=== PATIENT | male | born 1990 | race Caucasian/White ===

== ENCOUNTER 2022-08-13 11:16 | Outpatient (CLI) | payer MEDICAID, SELFPAY ==
[2022-08-13] MEDS: Barium Sulfate 2% W/V-Berry Smoothie 450 ML BTL PO ×2 (11:37→11:38)
--- NOTE | 2022-08-13 14:23 | DI.CT_ITS ---
Exam(s) CT ABDOMEN PELVIS W EXAM: CT ABDOMEN PELVIS W CLINICAL HISTORY: abdominal pain, VENTRAL HERNIA, K43.9. TECHNIQUE: Imaging Protocol: Axial computed tomography images with coronal and sagittal reformatted images were created and reviewed CONTRAST MATERIAL: Intravenous: Omnipaque-350 100cc Oral: Yes. Oral contrast was opacified santiago. COMPARISON: No exams were available for comparison FINDINGS: VISUALIZED LUNG BASES: No nodules nor pleural effusions evident. ABDOMEN: There is no ascites. LIVER: There are no focal hepatic lesions evident. No dilated intrahepatic ducts. GALLBLADDER/BILIARY: No obvious gallbladder pathology. CBD is not dilated. PANCREAS: No evidence of pancreatic mass nor dilatation of the pancreatic duct. SPLEEN: Spleen size is normal. There is a 4 millimeter hypodensity in the spleen which is probably a cyst or hemangioma. Splenic and portal veins are patent. ADRENALS: There are no significant adrenal masses. KIDNEYS:No cysts evident. No solid renal masses. No calculi nor hydronephrosis.. ABDOMINAL AORTA: Abdominal aorta is not enlarged. LYMPH NODES:There is no retroperitoneal nor paraaortic adenopathy. ABDOMINAL WALL: Fat containing umbilical hernia noted. GI: There is no evidence of bowel obstruction, free air, nor abscess. PELVIS: GI: There is an appendicular lith in the appendix lumen just anterior to the right psoas muscle. Thi s measures 7 by 4 millimeters. There is, however, no evidence of obvious acute appendicitis at this time.No evidence of sigmoid diverticulitis. LYMPH NODES: There is no intrapelvic nor inguinal adenopathy. REPRODUCTIVE: Prostate size normal. Seminal vesicles unremarkable. URINARY BLADDER: No calculi nor obvious masses evident OSSEOUS: No fractures and no significant osseous lesions. IMPRESSION: 1. There is a 7 x 4 millimeter calcified appendicolith in the appendix lumen noted. However, there i s no evidence of acute appendicitis at this time. 2. There is an anterior abdominal wall fat only containing umbilical hernia. Does not contain bowel loops. There is no evidence of obvious bowel obstruction, free air, nor abscess. 3. There is no ascites. RADIATION DOSE DELIVERED: 762.31mGy.cm Total DLP DATA REPOSITORY: All CT scans at this facility are submitted to the National Radiology Data Registry (NRDR) Dose Index Registry (DIR) with the [employer] (ACR). RADIATION OPTIMIZATION: All CT scans at this facility use at least one of these dose optimization te chniques: automated exposure control; mA and/or kV adjustment per patient size (includes targeted exa ms where dose is matched to clinical indication); or iterative reconstruction.
[2022-08-13] MEDS: Omnipaque 350 MG/ML 500 ML BTL-Imaging package 100 ML IJ (14:38)
== END 2022-08-13 11:36 ==
LOC: DI 11:17
PROVIDERS: Visit Provider Physician Assistant
DX: K43.9 Ventral hernia without obstruction or gangrene (principal); K38.8 Other specified diseases of appendix
CPT/HCPCS: 74177

== ENCOUNTER 2023-12-03 11:56 | Observation (INO) | payer MEDICAID, SELFPAY ==
[2023-12-03] VITALS (26 sets, daily range): BP systolic 104–169; BP diastolic 62–108; PULSE 66–99; RESP 13–20; TEMP 36.2–37.1; O2SAT 95–100; BMI 20.2
--- NOTE | 2023-12-03 12:45 | DI.CT_ITS ---
Exam(s) CT ABDOMEN PELVIS W EXAM: CT ABDOMEN PELVIS W CLINICAL HISTORY: RLQ pain, hx of appendicolith TECHNIQUE: Imaging Protocol: Axial computed tomography images with coronal and sagittal reformatted images were created and reviewed. CONTRAST MATERIAL: Intravenous: Omnipaque 350 Contrast volume:100 mL Oral: No COMPARISON: CT CT ABDOMEN PELVIS W from 08/13/2022 FINDINGS: ABDOMEN: Lung Bases: Normal where visualized. Liver: Normal density. There is a tiny hypodensity in the posterior segment of the right lobe of the liver. This is too small for further characterization but likely reflects a small cyst. No suspicio us hepatic masses are seen. The liver measures 21.1 cm long. Portal, Superior Mesenteric, and Splenic Veins: Unremarkable. Gallbladder and Biliary Tract: No radiodense calculus or dilation. Pancreas: Normal density, no abnormal calcifications or inflammatory process. Spleen: There is a small stable cyst or hemangioma in the spleen. Adrenals: No masses seen. Kidneys: Normal size, contour and axis. There is a 2 mm nonobstructing stone in the lower pole of the left kidney. No masses seen. Abdominal Aorta: Abdominal portion non-dilated. Bowel: No obstruction or bowel wall thickening. The appendix measures 1 cm in diameter with an enhanc ing wall. There is an appendicolith present. There are inflammatory changes around the appendix. T he findings are consistent with acute appendicitis. Peritoneal Cavity: There is a trace amount of free fluid in the right lower quadrant. No free air. Lymph Nodes: Within normal limits. Bones: Within normal limits for the patient's age. Soft Tissues: Unremarkable. PELVIS: Bladder: The urinary bladder is incompletely distended limiting evaluation. Reproductive Organs: Unremarkable as visualized. Lymph Nodes: Within normal limits. Bones: Within normal limits for the patient's age. IMPRESSION: Findings of acute appendicitis with appendicoliths. No abscess or free air. RADIATION DOSE DELIVERED: 605.41mGy.cm Total DLP DATA REPOSITORY: All CT scans at this facility are submitted to the National Radiology Data Registry (NRDR) Dose Index Registry (DIR) with the [employer] (ACR). RADIATION OPTIMIZATION: All CT scans at this facility use at least one of these dose optimization te chniques: automated exposure control; mA and/or kV adjustment per patient size (includes targeted exa ms where dose is matched to clinical indication); or iterative reconstruction.
[2023-12-03 13:05] LABS: Abs Immature Grans 0.02 10^3/uL (0.0-0.06); Absolute Basophil Count 0.05 10^3/uL (0.0-0.2); Absolute Eosinophil Count 0.07 10^3/uL (0.0-0.7); Absolute Lymphocyte Count 2.86 10^3/uL (1.2-3.4); Absolute Monocyte Count 0.65 10^3/uL (0.1-0.8); Absolute Neutrophil Count 4.64 10^3/uL (1.2-6.7); Basophils % 0.6 %; Eosinophils % 0.8 %; HCT 48.5 % (40.0-50.0); HGB 16.8 g/dL (13.5-17.5); Immature Grans % 0.2 %; Lymphocytes % 34.5 %; MCH 31.2 pg (27.0-33.0); MCHC 34.6 % (32.0-36.0); MCV 90 fL (80-95); MPV 9.8 fL (8.0-11.0); Monocytes % 7.8 %; Neutrophils % 56.1 %; Platelet Count 322 10^3/uL (130-400); RBC 5.39 10^6/uL (4.36-5.78); RDW 11.8 % (11.8-14.1); RDW-SD 38.7 fL; WBC 8.29 10^3/uL (4.4-10.8)
[2023-12-03] MEDS: Normal Saline 1,000 ML 1000 ML IV (13:17)
[2023-12-03 13:31] LABS: ALT 26 U/L (16-63); AST 13 U/L (15-37); Albumin 4.6 g/dL (3.4-5.0); Alkaline Phosphatase 99 U/L (46-116); Anion Gap 13.2 mmol/L (3-11); BUN 13 mg/dL (7-18); CO2 25.8 mmol/L (21.0-32.0); CREATININE 1.1 mg/dL (0.70-1.30); Calcium 9.3 mg/dL (8.5-10.1); Chloride 100 mmol/L (98-107); Estimated GFR 89.78 (mL/min/1.73m2); Glucose 104 mg/dL (74-106); Lipase 23 U/L (16-77); Potassium 3.9 mmol/L (3.5-5.1); Sodium 139 mmol/L (136-145); TSH (W/Ref FT4) 1.09 uIU/mL (0.36-3.74); Total Protein 8.6 g/dL (6.4-8.2)
[2023-12-03] MEDS: Omnipaque 350 MG/ML 100 ML BTL IJ (13:55)
[2023-12-03] MEDS: Normal Saline - Diluent 50 ML VIAL IJ (13:58)
[2023-12-03] MEDS: Normal Saline Flush 10 ML SYR IVP ×2 (13:59→19:43)
--- NOTE | 2023-12-03 14:16 | W.ED.GENAD ---
Discharge Plan Disposition Condition: Good Discharge Details Chief Complaint: Abd Prob Admit Date/Time: 12/03/23 16:39 Admit Provider: Olamide Rubalcava Attending Provider: Olamide Rubalcava Primary Care Provider: Unknown,Unknown ED Provider: Audrey Walls Discharge Instructions Activity:: Activity as Tolerated Equipment/Supplies:: No Equipment Needed Diet:: Normal Diet Discharge Orders Discharge Orders: Discharge Order (Routine); Ordered 12/04/23 Ordered By: Olamide Rubalcava Discharge Data Discharge Date/Time-TO BE ENTERED AT DEPARTURE: 12/03/23 16:56 HPI General Date/Time Provider Initiated Documentation: 12/03/23 12:29. HPI Narrative: 33-year-old male presents with right lower quadrant pain that started on Friday. States that he has had anorexia denies any vomiting. Denies any chest pain or shortness of breath. Has had difficulties with bowel movements. Denies any fever or chills. States urine has been dark. Related Data Home Medications Medication Instructions Recorded Confirmed lamotrigine 100 mg tablet 100 mg PO BID 08/13/22 12/03/23 tramadol 50 mg tablet 50 mg PO Q4H PRN #14 tabs 12/04/23 Previous Rx's Medication Instructions Recorded tramadol 50 mg tablet 50 mg PO Q4H PRN #14 tabs 12/04/23 Allergies Allergy/AdvReac Type Severity Reaction Status Date / Time bee venom protein (honey bee) Allergy Intermediate Other (See Verified 12/03/23 12:06 Comment) General Stated Complaint: Abd Prob GEM: 3 Exam Narrative Exam Narrative: Alert and oriented male, no scleral icterus or jaundice, lungs clear to auscultation, cardiac rate rhythm regular, McBurney's point tenderness on exam without rebound tenderness, distal pulses intact Course Vital Signs Vital signs: Vital Signs Temperature 37.1 C 12/03/23 12:00 Pulse 99 H 12/03/23 12:00 Respiratory Rate 14 12/03/23 12:00 Blood Pressure 146/98 H 12/03/23 12:00 Pulse Oximetry 97 12/03/23 12:00 Temperature 37.1 C 12/03/23 12:00 Temperature Source Skin 12/03/23 12:00 Pulse 79 12/03/23 13:15 Respiratory Rate 14 12/03/23 12:00 Blood Pressure 115/77 12/03/23 13:15 Blood Pressure Mean 89 12/03/23 13:15 Pulse Oximetry 97 12/03/23 12:00 Oxygen Delivery Method Room Air 12/03/23 12:00 Oxygen Flow Rate 0 12/03/23 12:00 Pain Level 7 12/03/23 12:00 Lab/Test Results Lab/Test Results: Laboratory Tests Range/Units 12/03/23 12:18 WBC (4.4-10.8) 10^3/uL 8.29 RBC (4.36-5.78) 10^6/uL 5.39 Hgb (13.5-17.5) g/dL 16.8 Hct (40.0-50.0) % 48.5 MCV (80-95) fL 90 MCH (27.0-33.0) pg 31.2 MCHC (32.0-36.0) % 34.6 RDW (11.8-14.1) % 11.8 Plt Count (130-400) 10^3/uL 322 MPV (8.0-11.0) fL 9.8 Immature Gran % % 0.2 Neutrophils % % 56.1 Lymphocytes % % 34.5 Monocytes % % 7.8 Eosinophils % % 0.8 Basophils % % 0.6 Nucleated RBC % (0.0-0.3) % 0.0 Absolute Neutrophils (1.2-6.7) 10^3/uL 4.64 Absolute Lymphocytes (1.2-3.4) 10^3/uL 2.86 Absolute Monocytes (0.1-0.8) 10^3/uL 0.65 Absolute Eosinophils (0.0-0.7) 10^3/uL 0.07 Absolute Basophils (0.0-0.2) 10^3/uL 0.05 Sodium (136-145) mmol/L 139 Potassium (3.5-5.1) mmol/L 3.9 Chloride (98-107) mmol/L 100 Carbon Dioxide (21.0-32.0) mmol/L 25.8 Anion Gap (3-11) mmol/L 13.2 H BUN (7-18) mg/dL 13 Creatinine (0.70-1.30) mg/dL 1.1 Est GFR (CKD-EPI 2020) (mL/min/1.73m2) 89.78 Glucose (74-106) mg/dL 104 Calcium (8.5-10.1) mg/dL 9.3 Total Bilirubin (0.2-1.0) mg/dL 1.0 AST (15-37) U/L 13 L ALT (16-63) U/L 26 Alkaline Phosphatase (46-116) U/L 99 Total Protein (6.4-8.2) g/dL 8.6 H Albumin (3.4-5.0) g/dL 4.6 Lipase (16-77) U/L 23 TSH (0.36-3.74) uIU/mL 1.09 Medical Decision Making 33-year-old male presenting with reports of right lower quadrant pain for the past few days. CT was ordered for further evaluation and displays acute appendicitis per Dr. Acosta interpretation and review. Labs reviewed without significant acute abnormality. Zosyn initiated patient remains n.p.o., Dr. Rubalcava, surgeon will take patient to operating room. Otherwise healthy alert, oriented, no leukocytosis Patient without signs of systemic illness, is alert, oriented, cooperative Quality:SDOH Health Related Social Needs: Health related social needs risk of homeless PFSH All Active Problems (Updated 12/05/23 @ 00:06 by [employer]) Seizure disorder (Chronic) Epigastric hernia (Acute) Cannabis use, uncomplicated (Acute) Smokes tobacco daily (Acute) [place] teeth removed (Acute) Medical History (Updated 12/05/23 @ 00:06 by [employer]) Acute appendicitis Umbilical hernia Surgical History (Updated 12/05/23 @ 00:06 by [employer]) Hx of umbilical hernia repair (~11/2023) incidental during appendectomy S/P laparoscopic appendectomy (~11/2023) Social History Smoking risk assessment performed?: No Housing: house
[2023-12-03 14:54] LABS: Bilirubin Moderate (Negative); Blood Small (Negative); Clarity Clear (Clear); Glucose Negative (Negative); Ketones 80 mg/dL (Negative); Leukocyte Esterase Negative (Negative); Nitrite Negative (Negative); pH 5.5 (5-8)
[2023-12-03] MEDS: PIPERACILLIN/TAZO 3.375 GM in Normal Saline 50 ML IVPB ×2 (14:55→19:47)
[2023-12-03 15:16] LABS: Bacteria Negative HPF (Negative); C & S Indicated? No; Casts Negative LPF (Negative); Crystals Negative HPF (Negative); Epithelial Cells Rare HPF (Negative); Mucus Trace (Negative); WBC Negative HPF (0-5)
--- NOTE | 2023-12-03 15:37 | ANES.PREOP_ITS ---
General Info Date of Service Date Performed: 12/03/23 Height: 5 ft 11 in Weight: 65.771 kg Body Mass Index (BMI): 20.2 Surgical Procedure: Operation Date: 12/03/23 16:10 Proposed Procedure Side Surgeon p Appendectomy Laparoscopic Olamide Rubalcava, DO Meds Allergies and Home Medications Allergies Allergy/AdvReac Type Severity Reaction Status Date / Time bee venom protein (honey bee) Allergy Intermediate Other (See Verified 12/03/23 12:06 Comment) Home Medication Medication Instructions Recorded lamotrigine 100 mg tablet 200 mg PO DAILY 08/13/22 Current Visit Medications: Current Medications Generic Name Dose Route Start Last Admin Trade Name Freq PRN Reason Stop Dose Admin Iohexol 100 ml 12/03/23 14:00 12/03/23 13:55 Omnipaque 350 Mg/Ml 100 Ml Btl IJ 01/02/24 23:59 100 ml DIRECTED NIEVES Administration Sodium Chloride 50 ml 12/03/23 14:00 12/03/23 13:58 Normal Saline - Diluent 50 Ml Vial IJ 50 ml .FOR DI USE NIEVES Administration Sodium Chloride 0 ml 12/03/23 13:59 12/03/23 13:59 Normal Saline Flush 10 Ml Syr IVP 10 ml PRN PRN Administration Vital Signs and Lab Results Vital Signs Most Recent Vital Signs in EMR: Most Recent Vital Signs Temp Pulse Resp BP Pulse Ox 37.1 C 66 14 111/66 97 12/03/23 12:00 12/03/23 13:46 12/03/23 12:00 12/03/23 13:46 12/03/23 12:00 Lab Results 12/03/23 12:18 12/03/23 12:18 Blood Type / Crossmatch: 2 No Data to Display Complete Blood Count: 2 White Blood Count 8.29 10^3/uL (4.4-10.8) 12/03/23 12:18 Red Blood Count 5.39 10^6/uL (4.36-5.78) 12/03/23 12:18 Hemoglobin 16.8 g/dL (13.5-17.5) 12/03/23 12:18 Hematocrit 48.5 % (40.0-50.0) 12/03/23 12:18 Platelet Count 322 10^3/uL (130-400) 12/03/23 12:18 Complete Metabolic Panel: 2 Sodium 139 mmol/L (136-145) 12/03/23 12:18 Potassium 3.9 mmol/L (3.5-5.1) 12/03/23 12:18 Chloride 100 mmol/L (98-107) 12/03/23 12:18 Carbon Dioxide 25.8 mmol/L (21.0-32.0) 12/03/23 12:18 BUN 13 mg/dL (7-18) 12/03/23 12:18 Creatinine 1.1 mg/dL (0.70-1.30) 12/03/23 12:18 Est GFR (CKD-EPI 2020) 89.78 (mL/min/1.73m2) 12/03/23 12:18 Calcium 9.3 mg/dL (8.5-10.1) 12/03/23 12:18 Albumin 4.6 g/dL (3.4-5.0) 12/03/23 12:18 Glucose 104 mg/dL (74-106) 12/03/23 12:18 Liver Function Panel: 2 Alanine Aminotransferase (ALT/SGPT) 26 U/L (16-63) 12/03/23 12: 18 Aspartate Amino Transf (AST/SGOT) 13 U/L (15-37) L 12/03/23 12: 18 Coagulation Panel: 2 No Data to Display Cardiac Panel: 2 No Data to Display Arterial Blood Gas: 2 No Data to Display Venous Blood Gas: 2 No Data to Display Pancreas Panel: 2 Lipase 23 U/L (16-77) 12/03/23 12:18 Thyroid Panel: 2 Thyroid Stimulating Hormone (TSH) 1.09 uIU/mL (0.36-3.74) 12/02 12:18 Infectious Disease: 2 No Data to Display Blood Cultures: 2 No Data to Display Toxicology Panel: 2 No Data to Display Anesthesia Assessment and Plan Anesthesia History Personal History: No History of General Anesthesia Family History: No Family History of Anesthesia Complications (adopted, unsure of history) Exercise Tolerance Exercise Tolerance: Metabolic Equivalents>4 Pertinent Negatives Pertinent Negatives: No Symptoms of GERD Cardiac & Pulmonary Exam Cardiac Exam: Normal S1/S2 Heart Sounds Pulmonary Exam: Clear Bilateral Breath Sounds Implantable Cardiac Device Does patient have a Pacemaker or an ICD?: No Airway Exam Known Difficult Airway: No Mallampati Class: 1 Mouth Opening: Normal (> 3cm) Thyromental Distance: Greater than 3 cm Neck Range of Motion: Full ROM Neck Circumference: Normal Teeth Condition: Normal Dentition ASA Classification ASA Score: ASA 2 Emergency Case?: Yes NPO Status NPO Status: NPO Clears >2 hours, Solids >8 hours Anesthesia Plan Resuscitation Status: Full Code Anesthesia Technique: General Anesthesia Airway Planned: Endotracheal Tube Monitors Used: Standard Monitors
--- NOTE | 2023-12-03 17:42 | NUR.NOTE ---
Nursing Note: admitted from ER, ambulatory, states pain is 3/10 mid abd and RLQ. NPO for pending operation
--- NOTE | 2023-12-03 18:11 | HPE_ITS ---
Date of service: 12/03/23 Time of Service: 18:12 Assessment and Plan Assessment and plan (1) Seizure disorder: Status: Chronic Assessment and plan: He takes his p.m. dose between 9 and midnight. Well-controlled on his current medication regimen (2) Acute appendicitis: Status: Acute Assessment and plan: Informed consent is obtained for the procedural (explained in simple layman's terms that the pt and/or family could understand) explaining risks vs benefits and alternatives to the procedure and consequences if we do not do the procedure. Risks include but are not limited to: bleeding, infections, pneumonia, blood clots/DVT/PE, anesthesia (aspiration, damage to teeth/airway/CA/CVA//prolonged mechanical ventilation/PTX/IV infections), damage to bowel, bladder, blood vessels, ureters. Damage to solid organs requiring removal. Leakage from anastomosis requiring colostomy/ Wound infections requiring further surgery. ?Scarring and disfigurement. Subsequent bowel obstructions from scar tissue.? Chronic pain or numbness from the incision, or hernia. Possible open procedure if minimally invasive procedure is being attempted. We will also do incidental repair of umbilical hernia. We cannot place mesh at this time because of the risk of infection. So there is a high chance that the hernia comes back. We discussed the importance of avoiding any heavy lifting or strenuous activity within the next 2 weeks Patient will get a secondary dose of antibiotics, because of unavoidable delay to the OR. I did personally review labs and his CT scan. (3) Epigastric hernia: Status: Acute Assessment and plan: He will need to have this repaired at a later time. (4) Umbilical hernia: Status: Acute (5) Cannabis use, uncomplicated: Status: Acute (6) Smokes tobacco daily: Status: Acute (7) [place] teeth removed: Status: Acute History of Present Illness Narrative: Patient is a 33-year-old male who presents to the emergency department complaining of abdominal pain. He has a known history of an umbilical hernia. He has been having periumbilical pain for the last 2 to 3 days and thought it was his hernia. He has had no fever or chills. He has had no nausea and vomiting. He came to the ER today. A CT was performed which shows acute appendicitis and appendicolith. He has a history of the seizure disorder. His last seizure was 2 years ago. He is well-controlled on lamotrigine. He's smokes tobacco and THC products. The only surgery he has had are his wisdom teeth which she had laughing gas for. He denies any asthma/emphysema. He denies any hypertension or heart disease. He is not diabetic. He is not on any steroids or other immunosuppressants. Review of Systems All systems reviewed & are unremarkable except as noted in HPI and below PFSH All Active Problems (Updated 12/03/23 @ 19:05 by Olamide Rubalcava DO) Seizure disorder (Chronic) Acute appendicitis (Acute) Epigastric hernia (Acute) Umbilical hernia (Acute) Cannabis use, uncomplicated (Acute) Smokes tobacco daily (Acute) [place] teeth removed (Acute) Social History Smoking risk assessment performed?: No Housing: house Meds Allergies and Home Medications Allergies Allergy/AdvReac Type Severity Reaction Status Date / Time bee venom protein (honey bee) Allergy Intermediate Other (See Verified 12/03/23 12:06 Comment) Home Medications Medication Instructions Recorded Confirmed Type lamotrigine 100 mg tablet 100 mg PO BID 08/13/22 12/03/23 History Exam Narrative Exam Narrative: PHYSICAL EXAM HEAD, EYES, EARS, NECK, THROAT: Head is normocephalic, pupils equal, round, reactive to light and accommodation, ocular movement intact, sclera clear and no jaundice. ?Dentition intact. LUNGS: normal respiration/normal chest excursion. ?Clear to auscultation bilaterally. ?No wheeze. ?HEART: Regular rate and rhythm. no murmurs ABDOMEN: Isolated right lower quadrant pain. Normal bowel sounds. No diffuse peritonitis. Umbilical hernia that is soft and reducible. 3 inches above this is an epigastric hernia that is soft and reducible.? Results Labs 12/03/23 12:18 12/03/23 12:18 Labs: Laboratory Results - last 24 hr 12/03/23 12/03/23 12:18 14:45 WBC 8.29 RBC 5.39 Hgb 16.8 Hct 48.5 MCV 90 MCH 31.2 MCHC 34.6 RDW 11.8 Plt Count 322 MPV 9.8 Immature Gran % 0.2 Neutrophils % 56.1 Lymphocytes % 34.5 Monocytes % 7.8 Eosinophils % 0.8 Basophils % 0.6 Nucleated RBC % 0.0 Absolute Neutrophils 4.64 Absolute Lymphocytes 2.86 Absolute Monocytes 0.65 Absolute Eosinophils 0.07 Absolute Basophils 0.05 Sodium 139 Potassium 3.9 Chloride 100 Carbon Dioxide 25.8 Anion Gap 13.2 H BUN 13 Creatinine 1.1 Est GFR (CKD-EPI 2020) 89.78 Glucose 104 Calcium 9.3 Total Bilirubin 1.0 AST 13 L ALT 26 Alkaline Phosphatase 99 Total Protein 8.6 H Albumin 4.6 Lipase 23 TSH 1.09 Urine Color Dark Yellow Urine Clarity Clear Urine pH 5.5 Ur Specific [place] 1.020 Urine Protein 30 H Urine Ketones 80 H Urine Blood Small H Urine Nitrite Negative Urine Bilirubin Moderate H Urine Urobilinogen 2.0 H Ur Leukocyte Esterase Negative Urine RBC 5-10 H Urine WBC Negative Ur Epithelial Cells Rare Urine Crystals Negative Urine Bacteria Negative Urine Casts Negative Urine Mucus Trace Ur Culture Indicated? No Urine Glucose Negative Last Vital Signs Temp 36.7 C 12/03/23 17:30 Pulse 74 12/03/23 17:30 Resp 17 12/03/23 17:30 BP 130/87 12/03/23 17:30 Pulse Ox 100 12/03/23 17:30 Anemia profile 2 Hgb 16.8 g/dL (13.5-17.5) 12/03/23 Hct 48.5 % (40.0-50.0) 12/03/23 MCV 90 fL (80-95) 12/03/23 RDW 11.8 % (11.8-14.1) 12/03/23 Basic Metabolic 2 Sodium 139 mmol/L (136-145) 12/03/23 Potassium 3.9 mmol/L (3.5-5.1) 12/03/23 Chloride 100 mmol/L (98-107) 12/03/23 Carbon Dioxide 25.8 mmol/L (21.0-32.0) 12/03/23 BUN 13 mg/dL (7-18) 12/03/23 Creatinine 1.1 mg/dL (0.70-1.30) 12/03/23 Glucose 104 mg/dL (74-106) 12/03/23 CBC 2 White Blood Count 8.29 10^3/uL (4.4-10.8) 12/03/23 Red Blood Count 5.39 10^6/uL (4.36-5.78) 12/03/23 Hemoglobin 16.8 g/dL (13.5-17.5) 12/03/23 Hematocrit 48.5 % (40.0-50.0) 12/03/23 Mean Corpuscular Volume 90 fL (80-95) 12/03/23 Mean Corpuscular Hemoglobin 31.2 pg (27.0-33.0) 12/03/23 Mean Corpuscular Hemoglobin Concent 34.6 % (32.0-36.0) 11/18 12/11 Red Cell Distribution Width 11.8 % (11.8-14.1) 12/03/23 Platelet Count 322 10^3/uL (130-400) 12/03/23 Mean Platelet Volume 9.8 fL (8.0-11.0) 12/03/23 Neutrophils % 56.1 % 12/03/23 Lymphocytes % 34.5 % 12/03/23 Monocytes % 7.8 % 12/03/23 Eosinophils % 0.8 % 12/03/23 Basophils % 0.6 % 12/03/23 Immature Granulocytes % 0.2 % 12/03/23 Comprehensive Metabolic Panel 2 Sodium 139 mmol/L (136-145) 12/03/23 12:18 Potassium 3.9 mmol/L (3.5-5.1) 12/03/23 12:18 Chloride 100 mmol/L (98-107) 12/03/23 12:18 Carbon Dioxide 25.8 mmol/L (21.0-32.0) 12/03/23 12:18 BUN 13 mg/dL (7-18) 12/03/23 12:18 Creatinine 1.1 mg/dL (0.70-1.30) 12/03/23 12:18 Glucose 104 mg/dL (74-106) 12/03/23 12:18 Calcium 9.3 mg/dL (8.5-10.1) 12/03/23 12:18 Total Bilirubin 1.0 mg/dL (0.2-1.0) 12/03/23 12:18 ALT 26 U/L (16-63) 12/03/23 12:18 AST 13 U/L (15-37) L 12/03/23 12:18 Alkaline Phosphatase 99 U/L (46-116) 12/03/23 12:18 Total Protein 8.6 g/dL (6.4-8.2) H 12/03/23 12:18 Albumin 4.6 g/dL (3.4-5.0) 12/03/23 12:18 Diabetes results 2 Glucose 104 mg/dL (74-106) 12/03/23 BUN 13 mg/dL (7-18) 12/03/23 Creatinine 1.1 mg/dL (0.70-1.30) 12/03/23 Est GFR (CKD-EPI 2020) 89.78 (mL/min/1.73m2) 12/03/23 Sodium 139 mmol/L (136-145) 12/03/23 Potassium 3.9 mmol/L (3.5-5.1) 12/03/23 Chloride 100 mmol/L (98-107) 12/03/23 Carbon Dioxide 25.8 mmol/L (21.0-32.0) 12/03/23 Calcium 9.3 mg/dL (8.5-10.1) 12/03/23 AST 13 U/L (15-37) L 12/03/23 ALT 26 U/L (16-63) 12/03/23 Total Protein 8.6 g/dL (6.4-8.2) H 12/03/23 Albumin 4.6 g/dL (3.4-5.0) 12/03/23 TSH 1.09 uIU/mL (0.36-3.74) 12/03/23 Lipid profile 2 No Data to Display Stool tests (SJP) 2 No Data to Display Tick borne Illnesses 2 No Data to Display Time Spent Time spent with Patient: 40-54 minutes Time was spent: preparing to see the patient(eg.review tests), obtaining and/or reviewing separately otained hiistory, ordering medications,tests, procedures, referring, communicating with other health child care supervisor, indepentently interpreting results, counseling the patient and care coordination
[2023-12-03] MEDS: Lactated Ringers 1,000 ML 125 ML IV (18:19)
[2023-12-03] MEDS: ACETAMINOPHEN 1,000 MG/100 ML BTL 400 MG IVPB (18:19)
[2023-12-03] MEDS: Gabapentin 300 MG CAP 600 MG PO (18:20)
[2023-12-03] MEDS: lamoTRIgine 100 MG TAB PO (19:44)
[2023-12-03] MEDS: Lactated Ringers 1,000 ML 30 ML IV (20:20)
[2023-12-03] MEDS: Bupivacaine 0.25% Pres-Free W/EPI 30 ML VIAL ×2 (20:44→21:10)
--- NOTE | 2023-12-03 20:47 | APP_PTH ---
PATIENT: Kvgn Mejía LOC: U#:[id number] AGE/SX: 33/M ROOM: [id number] RE12/03/[address]: Olamide Rubalcava : 1990 BED: A DIS: 12/04/2023 SPEC #: [id number] RECD: 12/04/23 12:16 STATUS: ALBERT REQ #: [id number] CRIS: 12/03/23 20:[address]: Olamide Rubalcava DEPT: Surgical Specimen RECD BY: Audrey Poe ENTERED: 12/04/23 12:17 SP TYPE: Appendix OTHR DR: Unknown,Unknown Tissues: 1 - APPENDIX NOT INCIDENTAL Procedures: IMMUNOPEROXIDASE STAIN GROSS AND MICRO LEVEL 3 Comments: [id number]
--- NOTE | 2023-12-03 21:13 | ROE_ITS ---
Date of service: 12/03/23 Time of Service: 21:13 Operative Note Operative Note DATE OF PROCEDURE: 12/03/23 PRE-OP DIAGNOSIS: Acute appendicitis/umbilical hernia POST-OP DIAGNOSIS: same PROCEDURE: Laparoscopic appendectomy and incidental umbilical hernia repair SURGEON: Jacky Warren WORD PROCESSING SPECIALIST: Alpesh Rasheed ANESTHESIA TYPE: Local By Surgeon and General LMA/ETT Refer to Anesthesia Record ESTIMATED BLOOD LOSS: 5 PATHOLOGY: other COMPLICATIONS: None Patient was transported to: PACU Patient's condition: stable Procedure Description: INDICATIONS: The patient has signs and symptoms compatible with acute appendicitis and is brought to the OR for laparoscopic appendectomy, possible open procedure. Informed consent is obtained for the procedural (explained in simple layman's terms that the pt and/or family could understand) explaining risks vs benefits and alternatives to the procedure and consequences if we do not do the procedure. Risks include but are not limited to:bleeding,infections, pneumonia, blood clots/DVT/PE, anesthesia(aspiration, damage to teeth/airway/MT/CVA//prolonged mechanical ventilation/PTX/IV infections), damage to bowel, bladder,blood vessels, ureters. Damage to solid organs requiring removal. Leakage from anastomosis requiring colostomy. Wound infections requirng further surgery. Scarring and disfigurement. Subsequent bowel obstructions from scar tissue. Possible open procedure if minimaly invsive procedure is being attempted. Abscess and stump appendicitis as well as others. DESCRIPTION OF PROCEDURE: The patient was brought to the operating room suite and placed in supine position. Anesthesia was administered per the Department of Anesthesia. A Mckeon catheter and OG tube are placed. The patient was prepped and draped in the usual sterile fashion using ChloraPrep scrub solution. Pause for the cause was done. 30 mL of 1% buffered was used for local anesthetization. A stab incision was made in the umbilicus and the Veress was inserted. Drop test was positive and insufflation was begun. When 15 mm of pressure was noted on the monitor, the Veress was removed, a #5 port inserted. Camera inserted through the port shows no damage to underlying structures. Bowel, liver and stomach that are visualized are normal in appearance. Pelvic organs are not visualized. The appendix is inflamed, erythematous,enlarged, & distened, but does not appear to have been ruptured. There is no purulent drainage in the pelvis. It is not adhered to any adjacent structures. A 12 mm port was then placed in the suprapubic position under direct visualization following creation of a local field block as well as a second 5 mm port in the LLQ. The appendix is elevated and a rent dissected into the mesentery. The base of the appendix is healthy and will hold favian. A Endo-ADAM stapler is placed across the base of the appendix and fired and 2nd stapler placed across the mesentery and fired. The appendix is placed in a bag and brought out. There is no bleeding or enteric leakage from the staple lines. The pt does not require a drain. The abdomen was copiously irrigated with a liter of saline. All saline is evacuated. The scope and ports are removed. Pneumoperitoneum is evacuated. The fascia under the 12 mm port is closed with 0 Vicryl. The incision under the umbilicus is enlarged. The hernia defect is closed with 0 Vicryl in an interrupted fashion. The umbilicus is tacked down to the fascia. There was no bleeding from the port sites as when they removed and the pneumoperitoneum evacuated. The wounds were copiously irrigated and closed in 2 layers with 4-0 Monocryl.? Skin glue is used.? Sterile dressings are applied. The patient tolerated the procedure without complication, transferred to the recovery room in stable condition. JACKY WARREN, DO ?
--- NOTE | 2023-12-03 21:47 | W.ANESPOSTOP ---
Postoperative Evaluation Date, Time and Location Date Performed: 12/03/23 Time Performed: 21:47 Patient Location: PACU Vital Signs Most Recent Imported Vital Signs: Most Recent Vital Signs Temp Pulse Resp BP Pulse Ox 36.7 C 84 20 133/100 H 96 12/03/23 21:40 12/03/23 21:40 12/03/23 21:40 12/03/23 21:40 12/03/23 21:40 Pain Score Most Recent Pain Score: Most Recent Pain Score Pain Level [Mid Abdomen] 3 12/03/23 17:32 Pain Level 0 12/03/23 21:40 Assessment Mental Status: Awake (Alert & Oriented to Patient Baseline) Airway and Respiratory Function: Patent airway with normal (patient baseline) respiratory exam Cardiovascular Function: Hemodynamically Stable Hydration Status: Adequately Hydrated Nausea & Vomiting: No Nausea or Vomiting Pain: Pain is tolerable per patient Peripheral Nerve Block: Patient did not receive a nerve block
[2023-12-04] MEDS: Normal Saline Flush 10 ML SYR IVP ×3 (00:19→12:54)
[2023-12-04] MEDS: Ketorolac 15 MG/ML VIAL IVP ×3 (00:20→12:54)
[2023-12-04] MEDS: Acetaminophen 500 MG TAB 1000 MG PO ×2 (00:21→06:18)
[2023-12-04 00:43] VITALS: PULSE 56; RESP 16; O2SAT 95
[2023-12-04 06:51] VITALS: RESP 16
[2023-12-04 07:22] VITALS: BP 115/73; PULSE 59; RESP 20; TEMP 36.9; O2SAT 97
--- NOTE | 2023-12-04 07:27 | PGE_ITS ---
Date of Service Date of service: 12/04/23 Time of Service: 07:27 Assessment and Plan Assessment and plan (1) Acute appendicitis: Status: Acute Assessment and plan: POD # 1 s/p laparoscopic Appendectomy Awaiting breakfast Pain well controlled Urinating without difficulty Incisions are well approximated, skin a fix in place P// D/C home after breakfast Subjective Subjective Interval history since last seen: Arrived with the patient resting comfortably in bed. He reports that he is having some soreness postoperatively but otherwise is feeling well. He is excited to have breakfast. He denies any fevers, chills or night sweats. He denies having any nausea or vomiting. He is urinating without difficulty. Exam Const General: cooperative, healthy appearing and comfortable Orientation: alert and oriented x3 Resp Effort & Inspection: normal respiratory effort, no audible wheezes and no cough GI Inspection: normal to inspection Palpation: soft, no guarding and tender (suprapubic port site) Objective Last Vital Signs Temp 36.9 C 12/04/23 07:22 Pulse 59 L 12/04/23 07:22 Resp 20 12/04/23 07:22 BP 115/73 12/04/23 07:22 Pulse Ox 97 12/04/23 07:22 Laboratory Results - last 24 hr 12/03/23 12/03/23 12:18 14:45 WBC 8.29 RBC 5.39 Hgb 16.8 Hct 48.5 MCV 90 MCH 31.2 MCHC 34.6 RDW 11.8 Plt Count 322 MPV 9.8 Immature Gran % 0.2 Neutrophils % 56.1 Lymphocytes % 34.5 Monocytes % 7.8 Eosinophils % 0.8 Basophils % 0.6 Nucleated RBC % 0.0 Absolute Neutrophils 4.64 Absolute Lymphocytes 2.86 Absolute Monocytes 0.65 Absolute Eosinophils 0.07 Absolute Basophils 0.05 Sodium 139 Potassium 3.9 Chloride 100 Carbon Dioxide 25.8 Anion Gap 13.2 H BUN 13 Creatinine 1.1 Est GFR (CKD-EPI 2020) 89.78 Glucose 104 Calcium 9.3 Total Bilirubin 1.0 AST 13 L ALT 26 Alkaline Phosphatase 99 Total Protein 8.6 H Albumin 4.6 Lipase 23 TSH 1.09 Urine Color Dark Yellow Urine Clarity Clear Urine pH 5.5 Ur Specific [place] 1.020 Urine Protein 30 H Urine Ketones 80 H Urine Blood Small H Urine Nitrite Negative Urine Bilirubin Moderate H Urine Urobilinogen 2.0 H Ur Leukocyte Esterase Negative Urine RBC 5-10 H Urine WBC Negative Ur Epithelial Cells Rare Urine Crystals Negative Urine Bacteria Negative Urine Casts Negative Urine Mucus Trace Ur Culture Indicated? No Urine Glucose Negative Time Spent with Patient Time Spent with Patient: <25 minutes Time was spent: preparing to see the patient(eg.review tests), obtaining and/or reviewing separately otained hiistory and counseling the patient
--- NOTE | 2023-12-04 07:35 | DSE_ITS ---
Date of service: 12/04/23 Time of Service: 07:36 DS: Diagnosis Discharge Diagnosis (1) Acute appendicitis: Status: Acute Discharge Plan Disposition Patient Disposition: Home Condition: Good Discharge Details Reason For Visit: appendicitis Admit Date/Time: 12/03/23 16:39 Admit Provider: Olamide Rubalcava Attending Provider: Olamide Rubalcava Primary Care Provider: Unknown,Unknown Hospital Course Hospital Course: 33-year-old male presented to the ER with complaints of abdominal pain. His CT scan was performed which showed acute appendicitis. He underwent a laparoscopic appendectomy with Dr. Rubalcava. Postoperatively patient did well without any nausea or vomiting. He was advanced to a regular diet which she tolerated well. Pain was well-controlled postoperatively and he had no issues with urinating. Discharge home 2-week follow-up with the surgical office. Home Meds and New Rx's Prescriptions: New tramadol 50 mg tablet 50 mg PO Q4H PRNQty: 14 0RF Continued lamotrigine 100 mg tablet 100 mg PO BID Patient Comments: 100mg BID Discharge Instructions Additional Instructions: Pain control: ?For the first 72 hours after surgery, take your pain meds continuously, and not just when you have pain.?? Alternate Tylenol 1000mg by mouth every 8 hours, and Ibuprofen 600mg every 6 hours.? Make sure you take ibuprofen with food and not on an empty stomach.? ??Use the tramadol for breakthrough pain- pain that is greater than a 7. ?- Use ICE! Ice really helps to keep the swelling down, and swelling causes pain. ??Twenty minutes on, and then off, continuously for the first 72hours.? After the first 72hrs, you can just use the Tylenol, ibuprofen or Celebrex, and ice, when you have pain.?? If you are taking narcotic pain medication, follow the instructions on the label and do not drive. Pain medications can make you very constipated. Make sure you are moving your bowels daily. If not, take Miralax. - Anesthesia makes you very constipated.? Take a dose of Miralax the morning after surgery. ? Use an ice bag for the first 72 hours. This helps to decrease swelling, which causes pain. It is normal to be more sore/painful and swollen towards the end of the day and first thing in the morning. ? Use Miralax or prune juice to prevent constipation (this is a particular side effect of pain medication and anesthesia). Do not allow yourself to become constipated. You can also use milk of magnesia or MiraLAX ? Start out eating very small, bland amounts of food. Do not take pain pills on an empty stomach. - You will notice purple discoloration around the incisions.? This is the ?skin glue?.? This will wear off on its own.? It is OK to shower after 24hrs.? You do not need to cover the incisions. -You should walk frequently, gradually, increasing the distance. You may climb stairs, just go slowly. ? Do not go swimming or sit in a hot tub for two weeks. ? There are no stitches to remove. ? Do not drive your car x72hrs and then only if you have no pain and can move freely. Do not drive if you are taking pain narcotic pain medications. ? You may resume sexual activity whenever pain and soreness subside, usually in 2 weeks. ? Do no lift anything over 5 lbs. for two weeks. ? You may return to work in one week, or when you feel able, provided you do not have to do any heavy lifting or prolonged standing. ? You should return to Dr. Rubalcava?s office for a post-op appointment about two weeks after surgery. A follow-up should have been scheduled for you already.? If there is not, please call the Surgical [facility] at: [phone] to schedule an appointment. My Medications for pain and nausea are: Tylenol/ibuprofen ?and ultram- for severe pain ? When to Call the Office: ? If the incision becomes red or swollen, or there is more than a little drainage from it. ? If you develop a temperature higher than 100.5 F. ? If your eyes turn yellow ? Vomiting and can?t keep fluids down Stand Alone Forms: Nursing Discharge Form Referrals: Olamide Rubalcava, [OSTEOPATHIC DOCTOR] - 12/18/23 2:45 pm Activity:: Activity as Tolerated Equipment/Supplies:: No Equipment Needed Diet:: Normal Diet Discharge Orders Discharge Orders: Discharge Order (Routine); Ordered 12/04/23 Ordered By: Olamide Rubalcava Discharge Data Discharge Date/Time-TO BE ENTERED AT DEPARTURE: 12/04/23 14:27 DS: Summary Time Spent with Patient providing and/or coordinating discharge services: Less than 30 minutes Status at Discharge Functional status at discharge: independent ambulation Overall status at discharge: patient is back to baseline Mental Status: mental status grossly normal Speech and Movement: speech and movement normal Mood: congruent mood Affect: normal affect Quality:SDOH Health Related Social Needs: Health related social needs risk of homeless Exam Const General: cooperative, healthy appearing and comfortable Orientation: alert and oriented x3 Resp Effort & Inspection: normal respiratory effort, no audible wheezes and no cough GI Inspection: normal to inspection Palpation: soft, no guarding and tender (suprapubic port site) Psych Mental Status: mental status grossly normal Speech and Movement: speech and movement normal Mood: congruent mood Affect: normal affect DS: Data Vitals/I&O Vitals and I&O: Vital Signs Temperature 36.9 C 12/04/23 07:22 Temperature Source Skin 12/04/23 07:22 Pulse 59 L 12/04/23 07:22 Pulse Rhythm Regular 12/03/23 17:05 Respiratory Rate 20 12/04/23 07:22 Respiratory Effort Normal, Non-Labored 12/03/23 17:05 Respiratory Depth Normal 12/03/23 17:05 Respiratory Pattern Normal 12/03/23 17:05 Blood Pressure 115/73 12/04/23 07:22 Blood Pressure Mean 106 12/03/23 16:45 Blood Pressure Position Supine 12/03/23 16:48 Pulse Oximetry 97 12/04/23 07:22 Respiratory End-tidal CO2 23 12/03/23 21:40 Oxygen Delivery Method Room Air 12/04/23 07:22 Oxygen Flow Rate 0 12/04/23 07:22 Pain Level 2 12/04/23 07:22 Comment nurse notified. 12/04/23 07:22 Intake & Output 12/03/23 12/04/23 12/04/23 18:59 06:59 18:59 Intake Total 1050 / 2210.417 1160.417 / 2210.417 Output Total 150 / 150 Balance 1050 / 0.417 1010.417 / 0.417 Weight 65.7 kg Intake: IV 1050 / 0.417 1060.417 / 0.417 Oral 100 / 100 Output: Urine 150 / 150 Stool 0 / 0 Emesis 0 / 0 Other: Urine Color Pale Yellow Urine Appearance Clear Clear Comment patient voided in toilet Emesis Description None Data Completed and Pending Labs on day of discharge: Labs from last 24 hours 12/03/23 12/03/23 14:45 12:18 WBC 8.29 RBC 5.39 Hgb 16.8 Hct 48.5 MCV 90 MCH 31.2 MCHC 34.6 RDW 11.8 Plt Count 322 MPV 9.8 Immature Gran % 0.2 Neutrophils % 56.1 Lymphocytes % 34.5 Monocytes % 7.8 Eosinophils % 0.8 Basophils % 0.6 Nucleated RBC % 0.0 Absolute Neutrophils 4.64 Absolute Lymphocytes 2.86 Absolute Monocytes 0.65 Absolute Eosinophils 0.07 Absolute Basophils 0.05 Sodium 139 Potassium 3.9 Chloride 100 Carbon Dioxide 25.8 Anion Gap 13.2 H BUN 13 Creatinine 1.1 Est GFR (CKD-EPI 2020) 89.78 Glucose 104 Calcium 9.3 Total Bilirubin 1.0 AST 13 L ALT 26 Alkaline Phosphatase 99 Total Protein 8.6 H Albumin 4.6 Lipase 23 TSH 1.09 Urine Color Dark Yellow Urine Clarity Clear Urine pH 5.5 Ur Specific [place] 1.020 Urine Protein 30 H Urine Ketones 80 H Urine Blood Small H Urine Nitrite Negative Urine Bilirubin Moderate H Urine Urobilinogen 2.0 H Ur Leukocyte Esterase Negative Urine RBC 5-10 H Urine WBC Negative Ur Epithelial Cells Rare Urine Crystals Negative Urine Bacteria Negative Urine Casts Negative Urine Mucus Trace Ur Culture Indicated? No Urine Glucose Negative PFSH All Active Problems (Updated 12/04/23 @ 08:10 by Darling Page) Seizure disorder (Chronic) Acute appendicitis (Acute) Epigastric hernia (Acute) Umbilical hernia (Acute) Cannabis use, uncomplicated (Acute) Smokes tobacco daily (Acute) [place] teeth removed (Acute) Surgical History (Updated 12/04/23 @ 08:10 by Darling Page) Hx of umbilical hernia repair (~11/2023) incidental during appendectomy S/P laparoscopic appendectomy (~11/2023) Social History Smoking risk assessment performed?: No Housing: house Time Spent with Patient Time Spent with Patient: 45-69 minutes Time was spent: preparing to see the patient(eg.review tests), obtaining and/or reviewing separately otained hiistory, ordering medications,tests, procedures, referring, communicating with other health wound care specialist, indepentently interpreting results, counseling the patient and care coordination
[2023-12-04] MEDS: lamoTRIgine 100 MG TAB PO (07:51)
== END 2023-12-04 14:27 | disposition home or self-care (01) ==
LOC: ER 15:32 → MS 17:02
PROVIDERS: Admitting Provider Surgery; Emergency Provider Physician Assistant; Visit Provider Surgery
PROC: 0DTJ4ZZ Resection of Appendix, Percutaneous Endoscopic Approach (ICD-10-PCS; CPT 44970; principal; 2023-12-03 16:00)
DX: K35.80 Unspecified acute appendicitis (principal); K42.9 Umbilical hernia without obstruction or gangrene; G40.909 Epilepsy, unspecified, not intractable, without status epilepticus; Z79.899 Other long term (current) drug therapy; F12.90 Cannabis use, unspecified, uncomplicated; F17.210 Nicotine dependence, cigarettes, uncomplicated; C7A.020 Malignant carcinoid tumor of the appendix
CPT/HCPCS: 44970; 80053; 83690; 96361; 96365; 96375; 96376; 99285; 74177; 81003; 81015; 84443; 85025; 88304; 88361; J0131; J1100; J1885; J2001; J2405; J2543; J2704; J3010; J3490

== ENCOUNTER 2024-01-16 08:05 | Day surgery (SDC) | payer MEDICAID, SELFPAY ==
--- NOTE | 2024-01-15 12:56 | COLE_ITS ---
Date of service: 01/16/24 Time of Service: 10:45 Colonoscopy Report Date of procedure: 01/16/24 Pre-op diagnosis general: carcinoid of appendix Post-op diagnosis procedure note: same Surgeon: Olamide Rubalcava Anesthesia Type: General:No Airway Estimated blood loss (mL): 1 Pathology: other Complications: None Disposition: same day Prep: Miralax/Dulcolax Procedure Description: After informed consent was obtained the patient was taken to the procedure room and placed in a left decubitous position. Monitors were applied and a time out was done. The patients name, date of , procedure, allergies to medications and metal in their body was reviewed. The patient was then sedated. Once sedated and comfortable a rectal exam was done. External exam was normal. Internal exam revealed a normal sphincter tone and no palpable masses. The prostate no palpable masses. The scope was then introduced and retrofelexed. No internal hemorrhoids were identified. The scope was then advanced to the cecum with some difficulty. The colon was very tortuous and we did require abdominal pressure to pass the scope. The TI and appendiceal orifice were identified. The scope was then slowly retracted over minutes back into the rectum. No polyps or AVMs or diverticula are visualized today. This is pink and healthy with a normal vascular pattern. The appendiceal stump is well-healed. For quadrant biopsies are taken around the appendiceal stump just adjacent to the stump. The same procedure was then repeated 2 cm away from the stomach. A biopsy was also taken from the ileocecal valve. Biopsies are taken with a cold biting forcep. All specimen is retrieved and no bleeding is noted. The scope was removed and the patient was woken up and taken back to Same day surgery in stable condition. The patient tolerated the procedure well and there were no immediate complications. Follow up: The patient should follow up in 1 years unless they develop changes in bowel habits or other new gastrointestinal complaints. [place] Bowel Prep [place] Bowel Prep Right Colon: 2 Left Colon: 3 Transverse Colon: 3 Total Score: 8
--- NOTE | 2024-01-15 12:57 | ENDO_ITS ---
Date of service: 01/16/24 Time of Service: 10:48 Endoscopy Report DATE OF PROCEDURE: 01/16/24 PRE-OP DIAGNOSIS: carcinoid tumor POST-OP DIAGNOSIS: other (Same and hiatal hernia) SURGEON: Olamide Rubalcava ANESTHESIA TYPE: General:No Airway ESTIMATED BLOOD LOSS: 2 PATHOLOGY: other COMPLICATIONS: None DISPOSITION: same day PROCEDURE DESCRIPTION: After informed consent was obtained the patient was take to the procedure room and placed in a supine position. Monitors were applied and a time out was done. The patients name, date of , procedure type, allergies to medications and metal in their body was reviewed. A bite block was placed and the patient was sedated. Once sedated and comfortable the gastroscope was advanced through the oropharynx which was grossly normal into the esophagus. The proximal and mid- esophagus were normal. In the distal esophagus: No diverticula/stricture/varices noted. There are some changes at the GE junction that could be consistent with Grissom's esophagus. He does have a small island of isolated squamous cell mucosa noted. The Z-line is very irregular is a 4 cm type sliding hiatal hernia with no incarceration.. The scope was advanced into the stomach and through the pylorus into the 3rd portion of the duodenum. The duodenum was noted to be normal. Biopsies were done with a cold biting forcep. All specimens are retrieved and no bleeding is noted.. The scope was retracted back into the stomach and biopsies were done to rule out H. pylori. There were no gastritis or ulcers. The scope was retroflexed. The cardia and fundus were noted to be normal. There is a hiatal hernia noted. The scope was retracted b ack into the esophagus and biopsies were done of the GE junction to rule out Grissom's. The Z line was regular. The GE junction was at 38 cm. The scope was removed and scopes exchanged and continued onto CE.
--- NOTE | 2024-01-15 21:51 | HPE_ITS ---
Date of service: 01/16/24 Time of Service: 08:49 Assessment and Plan Assessment and plan (1) Cannabis use, uncomplicated: Status: Acute (2) Epigastric hernia: Status: Acute (3) Carcinoid tumor of appendix, malignant: Status: Acute Assessment and plan: Plan: EGD/Colonoscopy w/ general & natural airway. The?patient will be scheduled by my office. Bx of cecum will be done. Informed consent is obtained for the procedural (explained in simple layman's terms that?the pt and/or family could understand) explaining risks vs benefits and alternatives to the procedure and consequences if we do not do the procedure and need/rational for the procedure. Risks include but are not limited to: bleeding, infection, perforation of colon.? This would necessitate emergency surgery to repair the damage w/ possible ostomy; and other associated complications w/ the required surgery. ? Also complications of anesthesia including aspiration, WA/CVA/, inability to complete the procedure. I discussed with the?patient would they could expect during the procedure, post procedure and recovery time and risks.? The patient understands that they need to have a ride home after the procedure.? The patient was given all this information in writing and expressed understanding. (4) Seizure disorder: Status: Chronic (5) Smokes tobacco daily: Status: Acute History of Present Illness Narrative: Patient is here today for /EGDcolonoscopy for recent appendaceal carcinoid.??? They completed a bowel prep with just a clear yellow residual effluent.? They not having any chest pain or shortness of breath, currently.? They are not experiencing any fever or chills.? They deny any productive cough or upper respiratory tract infection signs or symptoms.? They are not having abdominal pain, or nausea and vomiting.? They have not had any changes in medications, past medical history or past surgical history since previously being seen in the office. They have not had any accidents or have been in the ER since the clinic pre-operative evaluation. ??I reviewed the procedure with the patient today, including risks and benefits of the procedure, and what they could expect at home for recovery.? All questions are answered to the patient?s satisfaction today, and they are stable to proceed with the proposed procedure. He has not done 24hr urine or PET yet. Consult 12/18/23 ath:NET .5cm in distal tip of appendix The patient does not have a history of hypertension. He is does not have a history of flushing dizziness passing out heat cold intolerance passing out in the shower etc. D/w pt and his implacations of the tumor. Because of size and location, should be a surgical cure. Will plan NET PET in another 4 weeks, once the inflammation from surgery has gone down, and 24 urine for catecholamines. We discussed the what a carcinoid is patient's. This is a small tumor that was in the tip. If there is any sign of further adenopathy or implants on the PET scan, he may need a right hemicolectomy and lymph node dissection versus other. Patient was given literature on carcinoid. Continue routine postoperative cares. d/w pt importance of smoking cessation labs and PET ordered When adjuvant testing is done we will probably send him to oncology for second opinion.. He does also have a epigastric hernia. Once we have completed a full oncological workup then we will further discuss that hernia. If he should require right hemicolectomy then this would be repaired at the same time, as an incidental hernia repair. Patient and his will follow-up in 4 weeks once adjuvant testing is completed and further read recommendations based on the results of this ?I tried to answer the questions to the best of the available information. However we do need to do close follow-up for the next 5 years. unfortunate incidental finding and I do not think any further surgery will be necessary. We will also plan on doing a EGD and colonoscopy in the next 4 to 6 weeks biopsies of the cecum and duodenum we discussed the procedure what it would enta il doing a bowel prep and risks and benefits including bleeding infection anesthesia/aspiration and perforation which could mean antibiotics or surgery. He had no problems with anesthesia during his appendectomy. also Plan: EGD & Colonoscopy w/ general & natural airway. The?patient will be scheduled by my office. The pt understands that they need to do a bowel prep and the importance of hydration during this.? The patient understands there is a theoretical risk of renal failure.? For healthy patients we use Gatorade/Miralax Prep.? ?For anyone with renal concerns- GoLytely will be used. Plavix and coumadin will need to be held except in unusual circumstances. ? Patients in A. Fib do not need to be bridged with Lovenox or on CVA prop hylaxis.? A baby ASA can be continued but full dose ASA needs to be stopped for 10 days prior to the procedure. A complete H & P is required within 30 days of the procedure.? GETA w/natural airway is used for the colonoscopy.? Informed consent is obtained for the procedural (explained in simple layman's terms that?the pt and/or family could understand) explaining risks vs benefits and alternatives to the procedure and consequences if we do not do the procedure and need/rational for the procedure. Risks include but are not limited to: bleeding, infection, perforation of colon.? This would necessitate emergency surgery to repair the damage w/ possible ostomy; and other associated complications w/ the required surgery. ? Also complications of anesthesia including aspiration, WA/CVA/, inability to complete the procedure. I discussed with the?patient would they could expect during the procedure, post procedure and recovery time and risks.? The patient understands that they need to have a ride home after the procedure.? The patient was given all this information in writing and expressed understanding. If there are any questions or concerns please feel free to contact our office.? Generally Colonoscopy does not require antibiotics prophylaxis, Review of Systems All systems reviewed & are unremarkable except as noted in HPI and below PFSH All Active Problems (Updated 12/05/23 @ 00:06 by LONNY CALHOUN) Carcinoid tumor of appendix, malignant (Acute) <5cm /tip/clear margins Seizure disorder (Chronic) Epigastric hernia (Acute) Cannabis use, uncomplicated (Acute) Smokes tobacco daily (Acute) [place] teeth removed (Acute) Medical History (Updated 01/15/24 @ 21:55 by Olamide Rbualcava DO) Acute appendicitis Surgical History (Updated 12/05/23 @ 00:06 by LONNY CALHOUN) Hx of umbilical hernia repair (~11/2023) incidental during appendectomy S/P laparoscopic appendectomy (~11/2023) Social History Smoking/Tobacco Use Status: Current every day Tobacco Type: cigarettes Smoking risk assessment performed?: Yes Alcohol Intake: former Drug use: Daily Substance use type: marijuana Details: Last used last night around 7:30pm on 01/15/24 Housing: house Additional Social history: [employer] Meds Allergies and Home Medications Allergies Allergy/AdvReac Type Severity Reaction Status Date / Time bee venom protein (honey bee) Allergy Intermediate Anaphylaxis Verified 01/16/24 08:21 Home Medications Medication Instructions Recorded Confirmed Type lamotrigine 100 mg tablet 100 mg PO BID 08/13/22 01/16/24 History Exam Narrative Exam Narrative: PHYSICAL EXAM GENERAL APPEARANCE: Alert, healthy appearance, oriented, x 3,? in no acute distress HYDRATION: Well hydrated HEAD, EYES, EARS, NECK, THROAT: Head is normocephalic, pupils equal, round, reactive to light and accommodation, ocular movement intact, sclera clear and no jaundice. ?Dentition intact. LUNGS: normal respiration/normal chest excursion. ?Clear to auscultation bilaterally. ?. ?HEART: Regular rate and rhythm. no murmurs ABDOMEN: soft and non-tender to palpation.? Normal bowel sounds.? No hernias.? incisions are well healed. Time Spent Time spent with Patient: 40-54 minutes Time was spent: preparing to see the patient(eg.review tests), obtaining and/or reviewing separately otained hiistory, ordering medications,tests, procedures, referring, communicating with other health hearing care practitioner, indepentently interpreting results, counseling the patient and care coordination
[2024-01-16 08:22] VITALS: BP 140/97; PULSE 90; RESP 20; TEMP 36.4; O2SAT 99
[2024-01-16] MEDS: Lactated Ringers 1,000 ML 80 ML IV ×2 (08:35→09:50)
--- NOTE | 2024-01-16 08:57 | ANES.PREOP_ITS ---
General Info Date of Service Date Performed: 01/16/24 Height: 5 ft 11 in Weight: 66 kg Body Mass Index (BMI): 20.2 Surgical Procedure: Operation Date: 01/16/24 09:05 Proposed Procedure Side Surgeon p Colonoscopy w/Cecal Biopsy/Gastroscopy Olamide Rubalcava DO Meds Allergies and Home Medications Allergies Allergy/AdvReac Type Severity Reaction Status Date / Time bee venom protein (honey bee) Allergy Intermediate Anaphylaxis Verified 01/16/24 08:21 Home Medication Medication Instructions Recorded lamotrigine 100 mg tablet 100 mg PO BID 08/13/22 Current Visit Medications: Current Medications Generic Name Dose Route Start Last Admin Trade Name Freq PRN Reason Stop Dose Admin Ringer's Solution 1,000 mls @ 80 mls/hr 01/16/24 06:00 01/16/24 08:35 IV 01/16/24 23:59 80 mls/hr INFUSION NIEVES Administration IV Miscellaneous Supplies 1 each 01/16/24 06:00 Iv Access IV 01/16/24 23:59 DIRECTED NIEVES Sodium Chloride 0 ml 01/16/24 06:00 Normal Saline Flush 10 Ml Syr IV 01/16/24 23:59 PRN PRN Sodium Chloride 0 ml 01/16/24 06:00 Normal Saline 10 Ml Vial IJ 01/16/24 23:59 DIRECTED PRN Sterile Water 0 ml 01/16/24 06:00 Water,Injection,Sterile 10 Ml Vial IJ 01/16/24 23:59 DIRECTED PRN PFSH Active Problems Active Problems: Problem Status Onset Code Carcinoid tumor of appendix, malignant C7A.020 Seizure disorder G40.909 Epigastric hernia K43.9 Cannabis use, uncomplicated F12.90 Smokes tobacco daily F17.200 [place] teeth removed K08.409 Medical History Medical History (Updated 01/15/24 @ 21:55 by Olamide Rubalcava DO) Acute appendicitis Medical History Comments:: has not had a seizure in 2021-is medically managed and seen at [facility] [place] Neurology Surgical History Surgical History (Updated 12/05/23 @ 00:06 by LONNY CALHOUN) Hx of umbilical hernia repair (~11/2023) incidental during appendectomy S/P laparoscopic appendectomy (~11/2023) Tobacco Smoking/Tobacco Use Status: Current every day Tobacco Type: cigarettes Alcohol Alcohol Intake: former Substance Use Substance use: Daily Substance use type: marijuana Details: Last used last night around 7:30pm on 01/15/24 Vital Signs and Lab Results Vital Signs Most Recent Vital Signs in EMR: Most Recent Vital Signs Temp Pulse Resp BP Pulse Ox 36.4 C L 90 20 140/97 H 99 01/16/24 08:22 01/16/24 08:22 01/16/24 08:22 01/16/24 08:22 01/16/24 08:22 Lab Results Blood Type / Crossmatch: No Data to Display Complete Blood Count: No Data to Display Complete Metabolic Panel: No Data to Display Liver Function Panel: No Data to Display Coagulation Panel: No Data to Display Cardiac Panel: No Data to Display Arterial Blood Gas: No Data to Display Venous Blood Gas: No Data to Display Pancreas Panel: No Data to Display Thyroid Panel: No Data to Display Infectious Disease: No Data to Display Blood Cultures: No Data to Display Toxicology Panel: No Data to Display Anesthesia Assessment and Plan Anesthesia History Personal History: No History of Anesthesia Complications Family History: No Family History of Anesthesia Complications Exercise Tolerance Exercise Tolerance: Metabolic Equivalents>4 Pertinent Negatives Pertinent Negatives: No Symptoms of GERD Cardiac & Pulmonary Exam Cardiac Exam: Normal S1/S2 Heart Sounds Pulmonary Exam: Clear Bilateral Breath Sounds Implantable Cardiac Device Does patient have a Pacemaker or an ICD?: No Airway Exam Known Difficult Airway: No Mallampati Class: 1 Mouth Opening: Normal (> 3cm) Thyromental Distance: Greater than 3 cm Neck Range of Motion: Full ROM Neck Circumference: Normal Teeth Condition: Normal Dentition ASA Classification ASA Score: ASA 2 Emergency Case?: No NPO Status NPO Status: NPO Clears >2 hours, Solids >8 hours Anesthesia Plan Resuscitation Status: Full Code Anesthesia Technique: General Anesthesia Airway Planned: Natural Airway Monitors Used: Standard Monitors
[2024-01-16 08:58] VITALS: BMI 20.2
--- NOTE | 2024-01-16 09:20 | BOWEL_PTH ---
PATIENT: Kvng Mejía LOC: [facility] U#:[id number] AGE/SX: 33/M ROOM: RE01/16/[address]: Olamide Rubalcava : 1990 BED: DIS: 01/16/2024 SPEC #: [id number] RECD: 01/16/24 12:57 STATUS: ALBERT RE #: [id number] CRIS: 01/16/24 09:[address]: Olamide Rubalcava DEPT: Surgical Specimen RECD BY: Audrey Poe ENTERED: 01/16/24 13:01 SP TYPE: Bowel OTHR DR: None Tissues: 1 - BIOPSY BOWEL 2 - BIOPSY BOWEL 3 - STOMACH BIOPSY 4 - STOMACH BIOPSY 5 - STOMACH BIOPSY 6 - ESOPHAGUS BIOPSY 7 - ESOPHAGUS BIOPSY 8 - BIOPSY BOWEL 9 - BIOPSY BOWEL 10 - BIOPSY BOWEL Procedures: GROSS AND MICRO LEVEL 4 IMMUNOPEROXIDASE STAIN Comments: [id number]
[2024-01-16 10:25] VITALS: BP 93/68; PULSE 66; RESP 18; TEMP 36.3; O2SAT 99
--- NOTE | 2024-01-16 10:29 | PDOC.DSDIS_ITS ---
Date of service: 01/16/24 Time of Service: 10:29 Discharge Plan Disposition Patient Disposition: Home Condition: Good Discharge Details Reason For Visit: egd/colon scopes Attending Provider: Olamide Rubalcava Primary Care Provider: None,None Home Meds and New Rx's Prescriptions: No Action lamotrigine 100 mg tablet 100 mg PO BID Patient Comments: 100mg BID Discharge Instructions Additional Instructions: DSU Colonoscopy Post- Op Instructions Instructions for Everyone who is given Anesthesia: For your safety, please do the following for the next twenty-four (24) hours: *Do Not operate a motor vehicle (car, truck, motorcycle, etc.) *Do Not drink alcoholic beverages or use any recreational drugs for the first 24 hours or while taking pain medications. The medications in your body may have a reaction that can be dangerous. *Do Not make any important decisions or sign any important papers. Findings: small hiatal hernia in esophagus- this can make you prone to reflux Otherwise no signs of carcinoid tumor Follow up: Dr. Rubalcava in 2-3 weeks/after the PET scan to review biopsy's and test results 1. No lifting over 20 pounds or strenuous activity for the first 24 hours after your procedure. After 24 hours there are no restrictions on your activity but you may feel fatigued for a few days. 2. After you arrive home you may have a light meal and return to your normal diet as you can tolerate it without feeling sick to your stomach. 3. You may have a bloated, gaseous feeling in your belly (abdomen) after a colonoscopy. Passing gas and belching will help. Walking or lying down on your left side with your knees flexed may relieve the discomfort. Call the office at [phone] (Office) or [phone] (Hospital) right away if you notice any of the following: a.Vomiting of blood or ?coffee ground stools?. b.Rectal bleeding 1Tbsp, blood clots or continuous bleeding. c.Severe belly (abdominal) pain. d.A hard distended belly (abdomen) and an inability to pass gas. 4. Please don?t expect to have a normal BM (bowel movement) for 2-3 days after your procedure. 5. If there are questions regarding the findings of your procedure, please contact your doctor 6. If you are unable to contact your doctor with a problem, contact the hospital at [phone]. 7. Continue all your regular medications unless directed otherwise. I understand the above instructions and have no questions. Signature of Patient or Adult Escort Name of Responsible Adult Escort Signature of Nurse Date/Time Activity:: see above Diet:: see above Discharge Orders Discharge Orders: Discharge Order (Routine); Ordered 01/16/24 Ordered By: Olamide Rubalcava DS: Diagnosis Discharge Diagnosis (1) Cannabis use, uncomplicated: Status: Acute (2) Epigastric hernia: Status: Acute (3) Carcinoid tumor of appendix, malignant: Status: Acute (4) Seizure disorder: Status: Chronic (5) Smokes tobacco daily: Status: Acute (6) Hiatal hernia: Status: Chronic
[2024-01-16 10:55] VITALS: BP 93/68; PULSE 60; RESP 16; TEMP 36.5; O2SAT 99
--- NOTE | 2024-01-16 10:57 | W.ANESPOSTOP ---
Postoperative Evaluation Date, Time and Location Date Performed: 01/16/24 Time Performed: 10:57 Patient Location: Day Surgery Unit Vital Signs Most Recent Imported Vital Signs: Most Recent Vital Signs Temp Pulse Resp BP Pulse Ox 36.3 C L 66 18 93/68 L 99 01/16/24 10:25 01/16/24 10:25 01/16/24 10:25 01/16/24 10:25 01/16/24 10:25 Pain Score Most Recent Pain Score: Most Recent Pain Score Pain Level 0 01/16/24 10:25 Assessment Mental Status: Awake (Alert & Oriented to Patient Baseline) Airway and Respiratory Function: Patent airway with normal (patient baseline) respiratory exam Cardiovascular Function: Hemodynamically Stable Hydration Status: Adequately Hydrated Nausea & Vomiting: No Nausea or Vomiting Pain: Pt. Denies Any Pain Peripheral Nerve Block: Patient did not receive a nerve block
== END 2024-01-16 11:57 | disposition home or self-care (01) ==
PROVIDERS: Visit Provider Surgery
PROC: (CPT 43239; principal; 2024-01-16 09:00)
DX: F17.200 Nicotine dependence, unspecified, uncomplicated; K44.9 Diaphragmatic hernia without obstruction or gangrene; Z12.11 Encounter for screening for malignant neoplasm of colon; K63.5 Polyp of colon; K31.9 Disease of stomach and duodenum, unspecified; K22.89 Other specified disease of esophagus
CPT/HCPCS: 43239; 45385; 88305; 88361; J2001; J2704